=== PATIENT | female | born 1935 | race Caucasian/White ===

== ENCOUNTER → 2016-10-12 | Outpatient (CLI) | payer MEDICARE, MEDICAID ==
[~2016-10-12] MED LIST: ADVIL200 MG PO; ANTACID ULTRA1000 M1 PO; ASPIR-LOW81 MG PO; ASPIRIN 81M81 MG/TA2 PO; ASPIRIN E.C. 8181 MG PO; ATIVAN 0.50.5 MG/TAB PO; ATIVAN PO; ATORVASTATIN; ATROVENT I0.2 MG/1 M IH; BENADRYL25 M2 PO; CALCIUM + D 6001 TAB PO; CALCIUM 1200 W/1 SGL PO; CALCIUM 600600 MG PO; CARDI-OMEGA1000 MG PO; CLEOCIN HCL300 MG PO; COLACE 100100 MG/CAP PO; COLACE50 MG PO; DECADRON6 MG PO; DILAUDID 2MG TAB2 MG PO; DIPHENHYDRAMINE25 MG PO; EPA FISH OIL1000 MG PO; ESCITALOPRAM; FISH OIL SUPER1 SGL PO; FLAGYL500 MG PO; FLONASE NASAL S16 GM NS; FLUTICASON0.05 MG/Ac NS; GABAPENTIN100 M1 PO; GAS RELIEF 125125 MG PO; GAS RELIEF125 MG PO; GAS-X EXTRA ST125 MG PO; IBUPROFEN; IBUPROFEN200 MG PO; IPRATROPIUM BROM3 M1 IH; IRON325 M1 PO; LANSOPRAZOLE30 MG PO; LEVOTHYROXINE PO; LEVOXYL0.05 MG PO; LEVOXYL0.075 MG PO; LEXAPRO20 MG PO; MACROBID 1100 MG/CAP PO; MULTIPLE VITAMI1 CAP PO; NAMENDA XR 28MG PO; NEURONTIN100 MG/CAP PO; NEURONTIN300 MG/CAP PO; OCUVITE1 TA1 PO; OMEGA-3 FISH1200 MG PO; OXYCODONE5 M1 PO; PREDNISONE20 MG PO; PREVACID 30MG30 M1 PO; PRIL40; PRIL40 PO; REQUIP0.25 MG PO; RT ALBUTER2.5 MG/0.5 IH; SINGULAIR 110 MG/TAB PO; SINGULAIR PO; SYNTHROID0.05 MG/TA PO; VISTARIL 2525 MG/CAP PO; ZANTAC PO; ZOFRAN 4MG T4 MG/TAB PO; ZYRTEC 10MG10 MG PO; ZYRTEC ALLERGY10 MG PO; [UNRECOGNIZED DRUG - OTHER]; [UNRECOGNIZED DRUG - OTHER] TP
== END ==
LOC: MC.RAD 10-05 10:20
DX: Z12.31 Encounter for screening mammogram for malignant neoplasm of breast (principal)

== ENCOUNTER 2017-06-14 09:58 | Emergency (ER) | payer MEDICARE, MEDICAID ==
[~2017-06-14] VITALS: Ht 154.9 cm; Wt 90.9 kg
[2017-06-14 10:01] VITALS: TEMP 97.6
[2017-06-14 10:30] LABS: BASO % 0.5 % (0.0-2.0); EOS # 0.1 (0.0-0.7); EOS % 1.6 % (0-4.0); GRAN # 4.2 (1.4-6.5); GRAN % 77.3 % (42.2-75.2); HEMATOCRIT 36.5 % (37.0-47.0); LYMPH # 0.7 (1.2-3.4); LYMPH % 11.9 % (20.0-51.0); MEAN CELL VOLUME 90 fl (80.0-100.0); MEAN CORPUSCULAR HEMOGLOBIN 29 pg (27.0-31.0); MEAN CORPUSCULAR HGB CONC 33 g/dl (33.0-37.0); MEAN PLATELET VOLUME 11.6 fl (7.4-10.4); MONO # 0.5 (0.1-0.6); MONO % 8.2 % (1.7-9.3); PLATELET COUNT 169 K/mm3 (130-400); RED BLOOD COUNT 4.08 M/mm3 (4.10-5.30); REDCELL DISTRIBUTION WIDTH-CV 14.6 % (11.5-14.5)
[2017-06-14 10:50] LABS: ALANINE AMINOTRANSFERASE 30 U/L (9-52); ALBUMIN 3.4 gm/dL (3.5-5.0); ALKALINE PHOSPHATASE 98 U/L (50-136); ANION GAP 10 mmol/L (7-16); AST,SGOT 30 U/L (15-37); BILIRUBIN,TOTAL 0.3 mg/dL (0.0-1.0); BLOOD UREA NITROGEN 13 mg/dL (7-17); CALCIUM 8.2 mg/dL (8.4-10.2); CARBON DIOXIDE 26 mmol/L (22-30); CHLORIDE 108 mmol/L (98-107); CREATININE, serum 0.64 mg/dL (0.52-1.25); GLUCOSE 73 mg/dL (74-106); POTASSIUM 3.5 mmol/L (3.4-5.0); SODIUM 143 mmol/L (137-145); TOTAL PROTEIN 5.8 gm/dL (6.4-8.2)
[2017-06-14 11:02] LABS: TROPONIN-I < 0.012 ng/mL (0.000-0.034)
[2017-06-14] MEDS ORDERED: NORCO 325 MG-51 TAB PO (11:09)
[2017-06-14] MEDS ORDERED: LASIX 20MG TABL20 MG PO (11:15)
[2017-06-14 12:36] VITALS: BP 139/66; PULSE 66
== END 2017-06-14 12:59 | disposition home or self-care (01) ==
LOC: COL.ER 09:58
PROVIDERS: Family Medicine
DX: S20.212A Contusion of left front wall of thorax, initial encounter (principal); R40.2412 Glasgow coma scale score 13-15, at arrival to emergency department; G20 Parkinson's disease; Z79.51 Long term (current) use of inhaled steroids; Z79.82 Long term (current) use of aspirin; W18.39XA Other fall on same level, initial encounter; Y92.009 Unspecified place in unspecified non-institutional (private) residence as the place of occurrence of the external cause
CPT/HCPCS: A9284

== ENCOUNTER 2017-06-19 23:07 | Emergency (ER) | payer MEDICARE, MEDICAID ==
[~2017-06-19] VITALS: Ht 154.9 cm; Wt 94.5 kg
[~2017-06-19 23:07] MED LIST changes: +LASIX 20MG TABL20 MG PO; +NORCO 325 MG-51 TAB PO
[2017-06-19 23:09] VITALS: TEMP 99
[2017-06-19 23:55] LABS: BASO % 0.3 % (0.0-2.0); EOS # 0.1 (0.0-0.7); EOS % 0.9 % (0-4.0); GRAN # 4.9 (1.4-6.5); GRAN % 77.9 % (42.2-75.2); LYMPH # 0.8 (1.2-3.4); MEAN CELL VOLUME 90 fl (80.0-100.0); MEAN CORPUSCULAR HGB CONC 33 g/dl (33.0-37.0); MEAN PLATELET VOLUME 11.4 fl (7.4-10.4); MONO # 0.5 (0.1-0.6); MONO % 7.7 % (1.7-9.3); PLATELET COUNT 163 K/mm3 (130-400); RED BLOOD COUNT 3.92 M/mm3 (4.10-5.30); REDCELL DISTRIBUTION WIDTH-CV 14.6 % (11.5-14.5)
[2017-06-19 23:57] LABS: HEMATOCRIT 35.1 % (37.0-47.0); HEMOGLOBIN 11.5 g/dl (12.5-16.0); MEAN CORPUSCULAR HEMOGLOBIN 29 pg (27.0-31.0)
[2017-06-20 00:01] LABS: PROTHROMBIN TIME 11.1 SECONDS (9.7-12.8)
[2017-06-20 00:05] LABS: ALANINE AMINOTRANSFERASE 25 U/L (9-52); ALBUMIN 3.6 gm/dL (3.5-5.0); ALKALINE PHOSPHATASE 110 U/L (50-136); ANION GAP 10 mmol/L (7-16); AST,SGOT 16 U/L (15-37); BILIRUBIN,TOTAL 0.2 mg/dL (0.0-1.0); BLOOD UREA NITROGEN 14 mg/dL (7-17); CALCIUM 8.5 mg/dL (8.4-10.2); CARBON DIOXIDE 29 mmol/L (22-30); CHLORIDE 103 mmol/L (98-107); CREATININE, serum 0.68 mg/dL (0.52-1.25); GLUCOSE 123 mg/dL (74-106); POTASSIUM 3.8 mmol/L (3.4-5.0); SODIUM 142 mmol/L (137-145); TOTAL PROTEIN 5.9 gm/dL (6.4-8.2)
[2017-06-20 00:17] LABS: TROPONIN-I < 0.012 ng/mL (0.000-0.034)
[2017-06-20] MEDS ORDERED: ASPERCREME1 EACH TP (02:01)
[2017-06-20 02:17] VITALS: BP 124/67; PULSE 74
== END 2017-06-20 02:40 | disposition home or self-care (01) ==
LOC: COL.ER 23:07
PROVIDERS: Emergency Medicine
DX: R07.89 Other chest pain (principal); J44.9 Chronic obstructive pulmonary disease, unspecified; G20 Parkinson's disease; E03.9 Hypothyroidism, unspecified; Z79.82 Long term (current) use of aspirin; Z79.51 Long term (current) use of inhaled steroids; Z90.49 Acquired absence of other specified parts of digestive tract; Z90.89 Acquired absence of other organs; Z90.710 Acquired absence of both cervix and uterus; Z98.890 Other specified postprocedural states

== ENCOUNTER 2017-07-06 03:20 | Emergency (ER) | payer MEDICARE, MEDICAID ==
[~2017-07-06] VITALS: Ht 154.9 cm; Wt 88.6 kg
[~2017-07-06 03:20] MED LIST changes: +ASPERCREME1 EACH TP
[2017-07-06 03:24] VITALS: TEMP 97.4
[2017-07-06 03:51] LABS: BASO # 0.1 (0.0-0.2); EOS # 0.1 (0.0-0.7); EOS % 2.8 % (0-4.0); GRAN # 3.1 (1.4-6.5); GRAN % 62.1 % (42.2-75.2); HEMATOCRIT 39.1 % (37.0-47.0); HEMOGLOBIN 12.7 g/dl (12.5-16.0); LYMPH # 1.2 (1.2-3.4); MEAN CELL VOLUME 88 fl (80.0-100.0); MEAN CORPUSCULAR HEMOGLOBIN 29 pg (27.0-31.0); MEAN CORPUSCULAR HGB CONC 33 g/dl (33.0-37.0); MEAN PLATELET VOLUME 11.4 fl (7.4-10.4); MONO # 0.5 (0.1-0.6); MONO % 9.7 % (1.7-9.3); PLATELET COUNT 195 K/mm3 (130-400); RED BLOOD COUNT 4.43 M/mm3 (4.10-5.30); REDCELL DISTRIBUTION WIDTH-CV 14.3 % (11.5-14.5)
[2017-07-06 03:55] LABS: INR 1.1 (0.8-3.0)
[2017-07-06 03:59] LABS: ALBUMIN 3.4 gm/dL (3.5-5.0); BILIRUBIN,TOTAL 0.4 mg/dL (0.0-1.0); CALCIUM 8.5 mg/dL (8.4-10.2); CREATININE, serum 0.71 mg/dL (0.52-1.25); PARTIAL THROMBOPLASTIN TIME 33.4 SECONDS (26.0-37.0); POTASSIUM 3.9 mmol/L (3.4-5.0); TOTAL PROTEIN 5.9 gm/dL (6.4-8.2)
[2017-07-06 05:28] LABS: COLLECTION METHOD CATHETER
[2017-07-06 05:38] LABS: MUCOUS Present /lpf; PH 7 (5-8); SQUAMOUS EPITHELIAL 0-2 /hpf; URINE APPEARANCE Clear; URINE BACTERIA None Seen /hpf; URINE BILIRUBIN Negative (NEGATIVE); URINE BLOOD Negative (NEGATIVE); URINE COLOR Straw; URINE GLUCOSE Negative (NEGATIVE); URINE KETONE Negative (NEGATIVE); URINE LEUKOCYTE ESTERASE Negative (NEGATIVE); URINE NITRATE Negative (NEGATIVE); URINE PROTEIN(semi-quant) Negative (NEGATIVE); URINE RBC 0-2 /hpf; URINE UROBILINOGEN Negative (NEGATIVE)
[2017-07-06 06:50] VITALS: BP 194/83; PULSE 61
[2017-07-07] MEDS ORDERED: REQUIP 1MG T1 MG/TAB PO (12:40)
[2017-07-07] MEDS ORDERED: LASIX 20MG TABL20 MG PO (12:40)
== END 2017-07-06 06:51 | disposition home or self-care (01) ==
LOC: COL.ER 03:20
PROVIDERS: Emergency Medicine
DX: S09.90XA Unspecified injury of head, initial encounter (principal); S01.411A Laceration without foreign body of right cheek and temporomandibular area, initial encounter; G20 Parkinson's disease; J44.9 Chronic obstructive pulmonary disease, unspecified; E03.9 Hypothyroidism, unspecified; Z79.51 Long term (current) use of inhaled steroids; Z79.82 Long term (current) use of aspirin; Z23 Encounter for immunization; W08.XXXA Fall from other furniture, initial encounter; Y92.009 Unspecified place in unspecified non-institutional (private) residence as the place of occurrence of the external cause

== ENCOUNTER 2017-07-07 09:34 | Inpatient (IN) | payer MEDICARE, MEDICAID ==
[~2017-07-07] VITALS: Ht 154.9 cm; Wt 90.9 kg
[2017-07-07] MEDS ORDERED: REQUIP 1MG T1 MG/TAB PO (12:40)
[2017-07-07] MEDS ORDERED: LASIX 20MG TABL20 MG PO (12:40)
[2017-07-07 16:11] VITALS: BP 163/90; PULSE 71; TEMP 98.6
[2017-07-07 18:50] VITALS: BP 182/113; PULSE 85
[2017-07-07 21:27] VITALS: BP 162/94; PULSE 79; TEMP 98.6
[2017-07-07 23:39] VITALS: BP 136/91; PULSE 72; TEMP 98.8
[2017-07-08] VITALS (7 sets, daily range): BP systolic 133–154; BP diastolic 51–78; PULSE 66–82; TEMP 98.1–98.9
[2017-07-08 08:34] LABS: BASO % 0.2 % (0.0-2.0); GRAN # 3.7 (1.4-6.5); GRAN % 77.2 % (42.2-75.2); HEMOGLOBIN 12.1 g/dl (12.5-16.0); LYMPH # 0.6 (1.2-3.4); LYMPH % 13.2 % (20.0-51.0); MEAN CELL VOLUME 86 fl (80.0-100.0); MEAN CORPUSCULAR HEMOGLOBIN 29 pg (27.0-31.0); MEAN CORPUSCULAR HGB CONC 33 g/dl (33.0-37.0); MEAN PLATELET VOLUME 11.8 fl (7.4-10.4); MONO # 0.4 (0.1-0.6); PLATELET COUNT 177 K/mm3 (130-400); RED BLOOD COUNT 4.22 M/mm3 (4.10-5.30); REDCELL DISTRIBUTION WIDTH-CV 14.1 % (11.5-14.5)
[2017-07-08 08:35] LABS: HEMATOCRIT 36.4 % (37.0-47.0)
[2017-07-08 08:47] LABS: CALCIUM 8.4 mg/dL (8.4-10.2); CREATININE, serum 0.59 mg/dL (0.52-1.25); POTASSIUM 3.6 mmol/L (3.4-5.0)
[2017-07-09 04:00] VITALS: BP 145/60; PULSE 88; TEMP 98.5
[2017-07-09 06:28] LABS: BASO % 0.2 % (0.0-2.0); GRAN # 4.1 (1.4-6.5); GRAN % 81.8 % (42.2-75.2); LYMPH # 0.5 (1.2-3.4); MEAN CELL VOLUME 89 fl (80.0-100.0); MEAN CORPUSCULAR HGB CONC 33 g/dl (33.0-37.0); MEAN PLATELET VOLUME 11.9 fl (7.4-10.4); MONO # 0.4 (0.1-0.6); MONO % 8.8 % (1.7-9.3); PLATELET COUNT 176 K/mm3 (130-400); RED BLOOD COUNT 4.08 M/mm3 (4.10-5.30); REDCELL DISTRIBUTION WIDTH-CV 14.3 % (11.5-14.5)
[2017-07-09 06:31] LABS: HEMATOCRIT 36.1 % (37.0-47.0); HEMOGLOBIN 11.8 g/dl (12.5-16.0); MEAN CORPUSCULAR HEMOGLOBIN 29 pg (27.0-31.0)
[2017-07-09 06:43] LABS: CALCIUM 8.5 mg/dL (8.4-10.2); CREATININE, serum 0.67 mg/dL (0.52-1.25); POTASSIUM 3.8 mmol/L (3.4-5.0)
[2017-07-09 07:57] VITALS: BP 136/46; PULSE 69; TEMP 98.9
[2017-07-09 11:18] VITALS: BP 138/54; PULSE 72
[2017-07-09 11:22] VITALS: BP 142/76; PULSE 78; TEMP 98.7
[2017-07-09 11:23] VITALS: BP 142/72; PULSE 77; TEMP 98.7
[2017-07-09] MEDS ORDERED: ATIVAN 0.50.5 MG/TAB PO (12:39)
[2017-07-09] MEDS ORDERED: VOLTAREN GEL 1%1 TU TP (12:39)
[2017-07-09] MEDS ORDERED: MEDROL 4MG DOSPA4 MG PO (12:49)
== END 2017-07-09 15:23 | DRG 57 ==
LOC: COL.ER 09:34 → MEDICAL 12:04
PROVIDERS: Physician Assistant
DX: G20 Parkinson's disease (principal); J44.1 Chronic obstructive pulmonary disease with (acute) exacerbation; G62.9 Polyneuropathy, unspecified; W18.30XA Fall on same level, unspecified, initial encounter; R07.89 Other chest pain; F02.80 Dementia in other diseases classified elsewhere, unspecified severity, without behavioral disturbance, psychotic disturbance, mood disturbance, and anxiety; M79.7 Fibromyalgia; Z91.81 History of falling; Z87.891 Personal history of nicotine dependence; Z23 Encounter for immunization
CPT/HCPCS: 99222-AI; 99231-AI; 99239; G0378; G8987-GO; G8988-GO; J1644; J2270; J2920

== ENCOUNTER → 2018-02-18 | Outpatient (CLI) | payer MEDICARE, MEDICAID ==
[~2018-02-18] MED LIST changes: +MEDROL 4MG DOSPA4 MG PO; +REQUIP 1MG T1 MG/TAB PO; +VOLTAREN GEL 1%1 TU TP
== END ==
LOC: MC.RAD 01-13 10:20
DX: Z12.31 Encounter for screening mammogram for malignant neoplasm of breast (principal)

== ENCOUNTER → 2018-08-28 | Outpatient (CLI) | payer MEDICARE, MEDICAID | LOC: COL.VAS 14:47 | DX: I74.9 Embolism and thrombosis of unspecified artery (principal); M79.604 Pain in right leg; M79.605 Pain in left leg ==

== ENCOUNTER → 2018-09-18 | Outpatient (CLI) | payer MEDICARE, MEDICAID | LOC: COL.VAS 14:00 | DX: M79.604 Pain in right leg (principal); M79.605 Pain in left leg ==

== ENCOUNTER 2018-10-31 08:14 | Emergency (ER) | payer MEDICARE, MEDICAID ==
[~2018-10-31] VITALS: Ht 149.9 cm; Wt 83.6 kg
[2018-10-31 09:00] LABS: COLLECTION METHOD CLEAN CATCH
[2018-10-31 09:06] LABS: PH 7 (5-8); SQUAMOUS EPITHELIAL 0-2 /hpf; URINE APPEARANCE Clear; URINE BACTERIA None Seen /hpf; URINE BILIRUBIN Negative (NEGATIVE); URINE BLOOD Negative (NEGATIVE); URINE COLOR Straw; URINE GLUCOSE Negative (NEGATIVE); URINE KETONE Negative (NEGATIVE); URINE LEUKOCYTE ESTERASE Negative (NEGATIVE); URINE NITRATE Negative (NEGATIVE); URINE PROTEIN(semi-quant) Negative (NEGATIVE); URINE RBC 0-2 /hpf; URINE UROBILINOGEN Negative (NEGATIVE)
[2018-10-31] MEDS ORDERED: LIDODERM 5% PATC1 EA TP (10:44)
[2018-10-31 11:15] VITALS: BP 172/77; PULSE 61; TEMP 97.2
== END 2018-10-31 11:15 | disposition home or self-care (01) ==
LOC: COL.ER 08:14
PROVIDERS: Physician Assistant
DX: S09.90XA Unspecified injury of head, initial encounter (principal); S16.1XXA Strain of muscle, fascia and tendon at neck level, initial encounter; G20 Parkinson's disease; J44.9 Chronic obstructive pulmonary disease, unspecified; I10 Essential (primary) hypertension; E03.9 Hypothyroidism, unspecified; Z79.82 Long term (current) use of aspirin; Z87.891 Personal history of nicotine dependence; Z79.51 Long term (current) use of inhaled steroids; W19.XXXA Unspecified fall, initial encounter; Y92.009 Unspecified place in unspecified non-institutional (private) residence as the place of occurrence of the external cause
CPT/HCPCS: J1885

== ENCOUNTER → 2018-12-19 | Outpatient (CLI) | payer MEDICARE, MEDICAID ==
[~2018-12-19] MED LIST changes: +LIDODERM 5% PATC1 EA TP
[2018-12-19 17:04] LABS: CREATININE, serum 0.57 (0.52-1.25)
== END ==
LOC: COL.LAB 16:29
PROVIDERS: Psychiatry & Neurology Neurology
DX: G20 Parkinson's disease (principal); F02.80 Dementia in other diseases classified elsewhere, unspecified severity, without behavioral disturbance, psychotic disturbance, mood disturbance, and anxiety; M62.81 Muscle weakness (generalized); I10 Essential (primary) hypertension; E03.9 Hypothyroidism, unspecified; J44.9 Chronic obstructive pulmonary disease, unspecified; F41.9 Anxiety disorder, unspecified; K21.9 Gastro-esophageal reflux disease without esophagitis; M79.7 Fibromyalgia; R22.9 Localized swelling, mass and lump, unspecified; J30.9 Allergic rhinitis, unspecified

== ENCOUNTER 2019-05-15 15:00 | Inpatient (IN) | payer MEDICARE, MEDICAID ==
[~2019-05-15] VITALS: Ht 152.4 cm; Wt 85.9 kg
[2019-05-15 16:07] LABS: PROTHROMBIN TIME 11.4 SECONDS (9.7-12.8)
[2019-05-15 16:10] LABS: PARTIAL THROMBOPLASTIN TIME 31.7 SECONDS (26.0-37.0)
[2019-05-15 16:11] LABS: BASO % 0.6 % (0.0-2.0); EOS # 0.1 (0.0-0.7); EOS % 1.6 % (0-4.0); GRAN # 3.6 (1.4-6.5); GRAN % 71.9 % (42.2-75.2); HEMATOCRIT 37.1 % (37.0-47.0); LYMPH # 0.9 (1.2-3.4); LYMPH % 17.1 % (20.0-51.0); MEAN CELL VOLUME 91 fl (80.0-100.0); MEAN CORPUSCULAR HEMOGLOBIN 29 pg (27.0-31.0); MEAN CORPUSCULAR HGB CONC 32 g/dl (33.0-37.0); MONO # 0.4 (0.1-0.6); MONO % 8.4 % (1.7-9.3); PLATELET COUNT 157 K/mm3 (130-400); RED BLOOD COUNT 4.08 M/mm3 (4.10-5.30); REDCELL DISTRIBUTION WIDTH-CV 14.4 % (11.5-14.5)
[2019-05-15 16:15] LABS: ALANINE AMINOTRANSFERASE 32 U/L (9-52); ALBUMIN 3.4 gm/dL (3.5-5.0); ALKALINE PHOSPHATASE 95 U/L (50-136); ANION GAP 7 mmol/L (7-16); AST,SGOT 44 U/L (15-37); BILIRUBIN,TOTAL 0.4 mg/dL (0.0-1.0); BLOOD UREA NITROGEN 16 mg/dL (7-17); CALCIUM 8.3 mg/dL (8.4-10.2); CARBON DIOXIDE 28 mmol/L (22-30); CHLORIDE 107 mmol/L (98-107); CREATININE, serum 0.73 (0.52-1.25); GLUCOSE 91 mg/dL (74-106); POTASSIUM 3.8 mmol/L (3.4-5.0); SODIUM 142 mmol/L (137-145); TOTAL PROTEIN 5.7 gm/dL (6.4-8.2)
[2019-05-15 16:27] LABS: TROPONIN-I < 0.012 ng/mL (0.000-0.035)
[2019-05-15] MEDS ORDERED: VENTOLIN0.09 MG IH (17:32)
[2019-05-15] MEDS ORDERED: LUTEIN20 M1 PO (17:34)
[2019-05-15] MEDS ORDERED: PEPCID 20MG TAB20 MG PO (17:38)
--- NOTE | 2019-05-15 19:20 | NUR ---
Report received from day shift nurse. Reported patient arrived to medical from ER at shift change.
[2019-05-15 21:03] VITALS: BP 142/54; PULSE 58; TEMP 97.8
--- NOTE | 2019-05-15 21:15 | NUR ---
Received paperwork from [facility], and completed med rec based off paperwork, as patient was not sure what medications she takes and when. Patient has a baseline of dementia. Alert and oriented x 4 at this time. Denies having pain and discomfort. IV to site to left AC. Site is without redness, warmth, swelling, and pain. Fluids running per orders. Denies SOB and dyspnea. LS CTA. Respirations even and unlabored. HRR. On telemetry-normal sinus. Capillary refill less than 3 seconds. Non-tenting skin turgor. BSAx4. Abdomen soft and non-tender. 1+ edema BLE. Denies having any questions, needs, or concerns at this time. High fall risk precautions in place due to baseline dementia. Resting in bed with call light within reach.
[2019-05-15] MEDS ORDERED: ANTACID500 M1 PO (21:47)
[2019-05-15] MEDS ORDERED: [UNRECOGNIZED DRUG - OTHER] PO (21:49)
[2019-05-15] MEDS ORDERED: REQUIP 1MG T1 MG/TAB PO (21:53)
[2019-05-15] MEDS ORDERED: VICTORS1 LO2 TOP (21:55)
[2019-05-15] MEDS ORDERED: SYSTANE 0.4%-0.1 SOL OP (21:56)
[2019-05-15] MEDS ORDERED: PEPTO BISM262 MG/15 PO (21:58)
[2019-05-15] MEDS ORDERED: BICARSIM FORTE1 TA1 PO (21:59)
[2019-05-15] MEDS ORDERED: NEURONTIN300 MG/CAP PO (22:01)
[2019-05-15] MEDS ORDERED: MOTRIN 200200 MG/TAB PO (22:02)
[2019-05-15] MEDS ORDERED: ANORO IH (22:03)
[2019-05-15] MEDS ORDERED: MUCINEX 60600 MG/TA1 PO (22:06)
[2019-05-15] MEDS ORDERED: ANTI-DIARRHEAL2 MG PO (22:09)
[2019-05-15 23:11] VITALS: BP 142/61; PULSE 56; TEMP 98.4
--- NOTE | 2019-05-16 00:01 | NUR ---
HepXa 0.49. Decrease rate of heparin drip from 10 ml/hr to 9 ml/hr per protocol. Recheck at 0600.
[2019-05-16 04:53] VITALS: BP 148/66; BP 172/60; PULSE 61; TEMP 97.8
--- NOTE | 2019-05-16 06:00 | NUR ---
Patient denies having pain and discomfort. Stated that she was able to sleep well during the night except when staff kept waking her up. Voices no questions, needs, or concerns at this time. Resting in bed with call light within reach.
[2019-05-16 07:19] VITALS: BP 150/56; PULSE 53; TEMP 97.7
--- NOTE | 2019-05-16 09:29 | NUR ---
Pt assessment completed and charted. Morning medications administered per JUN. Pt sitting in bed, A&O. Denies chest pain at this time. Denies N/V/D, SOB, palpitations, abdominal pain. Pt has LAC IV w/ NS running, no complications. Hep gtt running, rate decreased to 8ml/hr per protocol post Hep XA draw this morning. Pt only c/o RLS and some tenderness to legs when touched. Call light within reach, no other concerns expressed.
[2019-05-16 12:11] VITALS: BP 172/72; PULSE 55; TEMP 98.4
--- NOTE | 2019-05-16 13:20 | NUR ---
Plan: To return home to [facility]. Patient listed her daughter Elvie as care support phone number is [phone]. Patient also listed Elvie as her EMR and DPOA. Assess: SW met with patient at her bedside. Patient reported that she is currently waiting to take a stress test tomorrow, and she is hoping to return home. Patient indicated that she utilizes a wheel chair and a shower chair, and her PCP is Dr. Kumar with her having an appt last Saturday. Patient reported that she gets her medications from [facility] pharmacy with no complications. Patient declined HHS at this time. Action: Patient was educated about community resources at this time. Sm may need transportation home. Sw did try to contact Patient's daughter with no answer.
--- NOTE | 2019-05-16 14:11 | NUR ---
Pt doing well, on hep gtt at 8ml hr. no change in current rate after noon labs. Pt denies pain. no concerns at this time.
[2019-05-16 15:50] VITALS: BP 158/63; PULSE 62; TEMP 98.3
--- NOTE | 2019-05-16 18:50 | NUR ---
Report received from day shift nurse. HepXa 0.27-goal, no change in rate. Recheck HepXa in the morning.
--- NOTE | 2019-05-16 19:16 | NUR ---
Pt had uneventful day. Hep gtt running at 8ml/hr, two consec lab draws were WNL, new Hep Xa to be drawn in AM. No other concerns noted. Report given to DARREN Wynne.
--- NOTE | 2019-05-16 19:50 | NUR ---
Patient assessed at this time. Alert and oriented x 4, and able to make needs known. Denies having pain and discomfort at this time. Peripheral IV to left AC. NS running at 100 ml/hr, and Heparin drip running at 8 ml/hr per orders. Site is without redness, warmth, swelling, and pain. Denies SOB and dyspnea. LS CTA. Respirations even and unlabored. Denies chest pain and discomfort. HRR. Telemetry in place: sinus. Capillaryr refill less than 3 seconds. Non-tenting skin turgor. BSAx4. Abdomen soft and non-tender. 1+ edema BLE. Voices no questions, needs, or concerns at this time. Resting in bed with call light within reach.
[2019-05-16 20:44] VITALS: BP 104/46; BP 140/64; PULSE 64; TEMP 98.1
--- NOTE | 2019-05-16 22:51 | NUR ---
Patient complaining of headache. States that she takes PRN Ibuprofen at home. Spoke with MARCELA Davila. New order for one time dose of Motrin. Given per orders. Also gave patient warm blanket as requested. Voices no further questions, needs, or concerns at this time. Resting in bed with call light within reach. High fall risk precautions in place.
[2019-05-16 23:53] VITALS: BP 138/56; PULSE 59; TEMP 98.3
[2019-05-17 03:57] VITALS: BP 134/58; PULSE 64; TEMP 98.3
--- NOTE | 2019-05-17 05:08 | NUR ---
Patient had called around 0230, and stated that she was having difficulty breathing. Oxygen 97% RA. Respirations 20, even and unlabored. Called RT to give nebulizer treatment. Patient with occasional moist cough. Stated that she was feeling more congested. Notified HAND ASSEMBLER and requested PRN Mucinex per patient's request. Patient pulled out IV to left AC around 0315. New IV access in left forearm. Wrapped with coban for protection. Continues on Heparin drip at 8 ml/hr, and on NS at 100 ml/hr. Voices no further questions, needs, or concerns at this time. Resting in bed with call light within reach.
--- NOTE | 2019-05-17 07:01 | NUR ---
Report given to day shift nurse.
--- NOTE | 2019-05-17 07:33 | NUR ---
IN TOO BOOST PATIENT UP IN BED. MOVED PATIENT TO THE CHAIR. PATIENT WAS A LITTLE TEARFUL SAYING, SHE MISSED HER JADE AND THEY ARE SOME PEOPLE THAT ARE NOT NICE TO HER. PATIENT DENIES ANY NAUSEA, VOMITING, SHORTNESS OF BREATH, OR DIZZINESS THIS MORNING. PATIENT IS ALERT AND ORIENTATED X4 THIS MORNING. PULSES ARE EQUAL AND BILATERALLY. NO COMPLAINTS AT THIS TIME MEDICALLY. PAIN IN HER BACK SO WILL CHECK TO SEE WHAT I CAN GET HER. CALL LIGHT IN REACH AND FRESH WATER GIVEN TO PATIENT WITH THE TV TURNED ON.
[2019-05-17 07:58] VITALS: BP 114/51; PULSE 57; TEMP 98.4
[2019-05-17 08:20] LABS: BASO % 0.7 % (0.0-2.0); EOS % 0.7 % (0-4.0); GRAN # 3.1 (1.4-6.5); HEMOGLOBIN 10.7 g/dl (12.5-16.0); LYMPH # 0.6 (1.2-3.4); LYMPH % 15.2 % (20.0-51.0); MEAN CELL VOLUME 91 fl (80.0-100.0); MEAN CORPUSCULAR HEMOGLOBIN 30 pg (27.0-31.0); MEAN CORPUSCULAR HGB CONC 32 g/dl (33.0-37.0); MEAN PLATELET VOLUME 12.1 fl (7.4-10.4); MONO # 0.3 (0.1-0.6); MONO % 7.2 % (1.7-9.3); PLATELET COUNT 123 K/mm3 (130-400); RED BLOOD COUNT 3.62 M/mm3 (4.10-5.30); REDCELL DISTRIBUTION WIDTH-CV 14.6 % (11.5-14.5)
[2019-05-17 08:40] LABS: CALCIUM 7.8 mg/dL (8.4-10.2); CHOLESTEROL RISK RATIO 3.1; CREATININE, serum 0.57 (0.52-1.25); POTASSIUM 3.4 mmol/L (3.4-5.0)
--- NOTE | 2019-05-17 09:38 | NUR ---
PATIENTS PAIN IS MUCH BETTER AFTER TAKING HER MORNING MEDICATIONS. SHE IS SITTING IN THE CHAIR RELAXING.
[2019-05-17 11:17] VITALS: BP 124/61; PULSE 56; TEMP 98
[2019-05-17 16:20] VITALS: BP 142/59; PULSE 53; TEMP 98
--- NOTE | 2019-05-17 17:04 | NUR ---
PATIENT JUST GOT BACK TO BED FROM USING THE BEDSIDE COMMODE.PATIENT VOIDED. HEPARIN INFUSION STOPPED BECAUSE OF D/C ORDER. NO COMPLAINTS AT THIS TIME.
--- NOTE | 2019-05-17 18:24 | NUR ---
PATIENT IS WALKING IN THE HALLWAY WITH THE DIRECTOR HOME ON DUTY AT THIS TIME. NO ACUTE S/S OF DYSTRESS. PATIENT HAD A SHOWER TODAY AND IS VERY HAPPY ABOUT IT. NO NEEDS AT THIS TIME.
--- NOTE | 2019-05-17 19:30 | NUR ---
PATIENT UP IN ROOM, REMINDED BY STAFF NURSE TO BE UP ONLY WITH ASSISTANCE FOR PATIENT SAFETY. PATIENT STATED SHE HAD TO VOID IN BATHROOM. PATIENT PUT BACK IN BED, BED ALARM ON.
[2019-05-17 19:57] VITALS: BP 159/65; PULSE 58; TEMP 98.3
[2019-05-17 23:11] VITALS: BP 143/51; PULSE 59; TEMP 98.4
[2019-05-18] VITALS (9 sets, daily range): BP systolic 112–148; BP diastolic 49–77; PULSE 54–86; TEMP 98.5–98.8
--- NOTE | 2019-05-18 01:30 | NUR ---
PATIENT OUT OF BED, BED ALARM GOING OFF, REPORTS SHE IS GOING TO THE BATHROOM& THAT SHE DID NOT REMEMBER WHERE SHE WAS AT, COOPERATIVE AND AFTER VOIDING IN BATHROOM, PUT BACK TO BED. BED ALARM ON.
--- NOTE | 2019-05-18 02:54 | NUR ---
PATIENT RESTING IN BED WITH EYES CLOSED, DOES NOT AWAKEN WHEN ROOM ENTERED. BED ALARM ON.
--- NOTE | 2019-05-18 05:20 | NUR ---
PER STAFF AID REPORTING AND THIS RN OBSERVED PATIENT WHEN AWAKE FROM SLEEP WOULD NOT REMEMBER BOTH TIMES AGAIN WHERE SHE WAS AT, WHY SHE IS NOT BEING TOLD "ANYTHING" AND REVIEWING WITH PATIENT PLANNED TESTING FOR MRI/EEG/LEXISCAN THIS MORNING ON DAY SHIFT. BED ALARM ON.
[2019-05-18 06:22] LABS: BASO % 0.3 % (0.0-2.0); EOS # 0.1 (0.0-0.7); EOS % 2.3 % (0-4.0); GRAN # 2.2 (1.4-6.5); GRAN % 65.3 % (42.2-75.2); HEMOGLOBIN 11.3 g/dl (12.5-16.0); LYMPH # 0.7 (1.2-3.4); LYMPH % 20.4 % (20.0-51.0); MEAN CELL VOLUME 90 fl (80.0-100.0); MEAN CORPUSCULAR HEMOGLOBIN 30 pg (27.0-31.0); MEAN CORPUSCULAR HGB CONC 33 g/dl (33.0-37.0); MEAN PLATELET VOLUME 12.3 fl (7.4-10.4); MONO # 0.4 (0.1-0.6); MONO % 11.4 % (1.7-9.3); PLATELET COUNT 125 K/mm3 (130-400); RED BLOOD COUNT 3.81 M/mm3 (4.10-5.30); REDCELL DISTRIBUTION WIDTH-CV 14.4 % (11.5-14.5)
[2019-05-18 06:42] LABS: HEMATOCRIT 34.3 % (37.0-47.0)
--- NOTE | 2019-05-18 07:26 | NUR ---
PATIENT RESTING IN BED, AWAKE DURING SHIFT CHANGE REPORT GIVEN TO DAY SHIFT NURSE. BED ALARM ON.
[2019-05-18] MEDS ORDERED: ASPIRIN 81M81 MG/TA2 PO (08:05)
[2019-05-18] MEDS ORDERED: IMDUR 30MG30 MG/TAB PO (08:05)
[2019-05-18] MEDS ORDERED: CRESTOR20 MG PO (08:07)
--- NOTE | 2019-05-18 09:15 | NUR ---
Pt down for lexiscan at this time.
--- NOTE | 2019-05-18 11:30 | NUR ---
Pt back from lexiscan. Assessment complete, morning medications administered. Pt had new 22g RFA INT IV placed for lexiscan. [facility] called to inform prior to injection that LAC IV site had gone bad. This nurse assessed site, IV catheter was coming out, site is red and a little swollen. IV removed, new site obtained. Pt is A&O, 1 assist in room. Pt on room air, denies chest pain, dizziness, SOB, N/V/D. VSS. Pt voices no other concerns at this time. Hospitalist in for rounds, POC discussed, awaiting lexiscan results.
--- NOTE | 2019-05-18 15:05 | NUR ---
Pt complaining of headache earlier, MARLA Onofre called for order. Motrin PRN administered. Pt states headache improved slightly after eating, headache possibly d/t being NPO.
--- NOTE | 2019-05-18 15:18 | NUR ---
Truck Trailer Final Inspector was notified that discharge orders were put in for patient. MYLES contacted Cailin (ph#[phone]) at [facility] and faxed discharge orders to [phone]. MYLES met with patient and patient's daughter, Elvie (ph#[phone]) to provide update. Elvie to provide transportation upon discharge. MYLES presented and explained IM form to patient who verbalized understanding and provided signature. Patient and Elvie declined copy from MYLES. MYLES placed form in chart. No additional needs identified at this time.
--- NOTE | 2019-05-18 17:20 | NUR ---
Pt discharge instructions discussed and reviewed w/ pt and daughter who verbalize understanding. All questions answered. Pt RFA INT IV dc'd w/ catheter tip intact and no other complications. Pt escorted out via WC by ESTEVAN Pagan
== END 2019-05-18 17:21 | disposition home or self-care (01) | DRG 313 ==
LOC: COL.ER 15:00 → MEDICAL 16:49
PROVIDERS: Emergency Medicine; ADMIT Hospitalist
DX: R07.89 Other chest pain (principal); K21.9 Gastro-esophageal reflux disease without esophagitis; F41.9 Anxiety disorder, unspecified; M79.7 Fibromyalgia; G31.83 Neurocognitive disorder with Lewy bodies; F02.80 Dementia in other diseases classified elsewhere, unspecified severity, without behavioral disturbance, psychotic disturbance, mood disturbance, and anxiety; J44.9 Chronic obstructive pulmonary disease, unspecified; I25.10 Atherosclerotic heart disease of native coronary artery without angina pectoris; I34.0 Nonrheumatic mitral (valve) insufficiency; I51.89 Other ill-defined heart diseases; E03.9 Hypothyroidism, unspecified; Z90.710 Acquired absence of both cervix and uterus; Z79.82 Long term (current) use of aspirin
CPT/HCPCS: OP; 99231-AI; 99239; A9500; G0378; J0360; J1644; J1650; J2785; J7030

== ENCOUNTER 2020-06-16 14:08 | Emergency (ER) | payer MEDICARE, MEDICAID ==
[~2020-06-16] VITALS: Ht 152.4 cm; Wt 81.8 kg
[~2020-06-16 14:08] MED LIST changes: +ANORO IH; +ANTACID500 M1 PO; +ANTI-DIARRHEAL2 MG PO; +BICARSIM FORTE1 TA1 PO; +CRESTOR20 MG PO; +IMDUR 30MG30 MG/TAB PO; +LUTEIN20 M1 PO; +MOTRIN 200200 MG/TAB PO; +MUCINEX 60600 MG/TA1 PO; +PEPCID 20MG TAB20 MG PO; +PEPTO BISM262 MG/15 PO; +SYSTANE 0.4%-0.1 SOL OP; +VENTOLIN0.09 MG IH; +VICTORS1 LO2 TOP; +[UNRECOGNIZED DRUG - OTHER] PO
[2020-06-16 14:15] VITALS: TEMP 97.8
[2020-06-16 14:46] LABS: BASO % 0.4 % (0.0-2.0); EOS # 0.1 (0.0-0.7); EOS % 1.1 % (0-4.0); GRAN # 4.2 (1.4-6.5); GRAN % 76.7 % (42.2-75.2); HEMATOCRIT 37.9 % (37.0-47.0); HEMOGLOBIN 12.7 g/dl (12.5-16.0); LYMPH # 0.7 (1.2-3.4); LYMPH % 12.5 % (20.0-51.0); MEAN CELL VOLUME 88 fl (80.0-100.0); MEAN CORPUSCULAR HEMOGLOBIN 30 pg (27.0-31.0); MEAN CORPUSCULAR HGB CONC 34 g/dl (33.0-37.0); MEAN PLATELET VOLUME 11.7 fl (7.4-10.4); MONO # 0.5 (0.1-0.6); MONO % 8.9 % (1.7-9.3); PLATELET COUNT 155 K/mm3 (130-400); RED BLOOD COUNT 4.29 M/mm3 (4.10-5.30); REDCELL DISTRIBUTION WIDTH-CV 14.6 % (11.5-14.5)
[2020-06-16 14:54] LABS: ALANINE AMINOTRANSFERASE 14 U/L (4-34); ALBUMIN 3.6 gm/dL (3.5-5.0); ALKALINE PHOSPHATASE 100 U/L (50-136); ANION GAP 7 mmol/L (7-16); AST,SGOT 23 U/L (15-37); BILIRUBIN,TOTAL 0.4 mg/dL (0.0-1.0); BLOOD UREA NITROGEN 15 mg/dL (7-17); C-REACTIVE PROTEIN 1.3 mg/dL (0.0-0.9); CALCIUM 8.8 mg/dL (8.4-10.2); CARBON DIOXIDE 23 mmol/L (22-30); CHLORIDE 108 mmol/L (98-107); CREATININE, serum 0.83 (0.52-1.25); GLUCOSE 110 mg/dL (74-106); SODIUM 138 mmol/L (137-145)
[2020-06-16 15:03] LABS: TROPONIN-I < 0.012 ng/mL (0.000-0.035)
[2020-06-16 15:35] LABS: COLLECTION METHOD CLEAN CATCH
[2020-06-16 15:50] LABS: BUDDING YEAST Present /hpf; MUCOUS Present /lpf; PH 5 (5-8); URINE APPEARANCE Cloudy; URINE BACTERIA Rare /hpf; URINE BILIRUBIN Negative (NEGATIVE); URINE BLOOD Negative (NEGATIVE); URINE COLOR Amber; URINE GLUCOSE Negative (NEGATIVE); URINE KETONE Negative (NEGATIVE); URINE LEUKOCYTE ESTERASE 1+ (NEGATIVE); URINE NITRATE Negative (NEGATIVE); URINE PROTEIN(semi-quant) 1+ (NEGATIVE); URINE RBC 20-50 /hpf; URINE UROBILINOGEN Negative (NEGATIVE)
[2020-06-16] MEDS ORDERED: OMNICEF 300MG300 MG PO (15:59)
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
[2020-06-16 17:05] VITALS: BP 143/65; PULSE 82
--- NOTE | 2020-06-17 13:53 | NUR ---
Pulmonary Care Nurse contacted [facility] (intake #[id number]) in regards to patient's concerns reported yesterday.
== END 2020-06-16 17:09 | disposition home or self-care (01) ==
LOC: COL.ER 14:08
PROVIDERS: Nurse Practitioner Primary Care
DX: R41.82 Altered mental status, unspecified (principal); G20 Parkinson's disease; F41.9 Anxiety disorder, unspecified; E03.9 Hypothyroidism, unspecified; E78.5 Hyperlipidemia, unspecified; I10 Essential (primary) hypertension; J44.9 Chronic obstructive pulmonary disease, unspecified; K21.9 Gastro-esophageal reflux disease without esophagitis; F03.90 Unspecified dementia, unspecified severity, without behavioral disturbance, psychotic disturbance, mood disturbance, and anxiety; M79.7 Fibromyalgia; Z88.6 Allergy status to analgesic agent; Z88.0 Allergy status to penicillin; Z88.2 Allergy status to sulfonamides; Z88.8 Allergy status to other drugs, medicaments and biological substances; Z79.82 Long term (current) use of aspirin; Z79.890 Hormone replacement therapy; Z20.822 Contact with and (suspected) exposure to COVID-19
CPT/HCPCS: J0696; J7030

== ENCOUNTER 2021-08-10 11:47 | Observation (INO) | payer MEDICARE, MEDICAID ==
[2021-08-10] VITALS (12 sets, daily range): BP systolic 103–167; BP diastolic 65–95; PULSE 58–79; TEMP 97.5–98.4
[~2021-08-10] VITALS: Ht 162.6 cm; Wt 81.4 kg
[~2021-08-10 11:47] MED LIST changes: +OMNICEF 300MG300 MG PO
[2021-08-10 12:00] LABS: BASO % 0.5 % (0.0-2.0); EOS # 0.1 K/mm3 (0.0-0.7); EOS % 1.1 % (0.0-4.0); GRAN # 4.5 K/mm3 (1.4-6.5); GRAN % 69.1 % (42.2-75.2); HEMATOCRIT 41.9 % (37.0-47.0); HEMOGLOBIN 14.2 g/dl (12.5-16.0); LYMPH # 1.1 K/mm3 (1.2-3.4); LYMPH % 17.7 % (20.0-51.0); MEAN CELL VOLUME 91 fl (80.0-100.0); MEAN CORPUSCULAR HEMOGLOBIN 31 pg (27-31); MEAN CORPUSCULAR HGB CONC 34 g/dl (33.0-37.0); MEAN PLATELET VOLUME 10.8 fl (7.4-10.4); MONO # 0.7 K/mm3 (0.1-0.6); PLATELET COUNT 167 K/mm3 (130-400); RED BLOOD COUNT 4.63 M/mm3 (4.10-5.30); REDCELL DISTRIBUTION WIDTH-CV 13.8 % (11.5-14.5)
[2021-08-10 12:19] LABS: ALANINE AMINOTRANSFERASE 18 U/L (0-55); ALBUMIN 3.7 gm/dL (3.4-4.8); ALKALINE PHOSPHATASE 89 U/L (40-150); ANION GAP 9 mmol/L (7-16); AST,SGOT 16 U/L (5-34); BILIRUBIN,TOTAL 0.5 mg/dL (0.2-1.2); BLOOD UREA NITROGEN 18 mg/dL (10-20); CALCIUM 8.2 mg/dL (8.4-10.2); CARBON DIOXIDE 23 mmol/L (23-31); CHLORIDE 103 mmol/L (98-107); CREATININE, serum 0.98 mg/dL (0.57-1.11); GLUCOSE 87 mg/dL (70-99); PROTHROMBIN TIME 11.8 SECONDS (9.7-12.8); SODIUM 135 mmol/L (136-145); TOTAL PROTEIN 5.7 gm/dL (6.2-8.1)
[2021-08-10 12:26] LABS: TROPONIN-I < 0.010 ng/mL (0.00-0.033)
[2021-08-10 12:29] LABS: D-DIMER < 200.00 ng/mLDDu (200-230)
[2021-08-10] MEDS ORDERED: CRESTOR5 MG PO (13:24)
[2021-08-10] MEDS ORDERED: QUESTRAN4 GM/9 GM PO (13:24)
[2021-08-10] MEDS ORDERED: EXELON 1.5MG1.5 MG PO (13:24)
[2021-08-10] MEDS ORDERED: ATIVAN 0.50.5 MG/TAB PO (13:26)
--- NOTE | 2021-08-10 14:50 | NUR ---
PT TO ROOM FROM ER. PT ASSISTED TO BED AND GIVEN AND EDUCATED ABOUT CALL LIGHT. PT STATES UNDERSTANDING. PT STATES THAT SHE IS NOT HAVING ANY CHEST PAIN OR SOB AT THIS TIME. PT STATES THAT SHE IS HUNGRY AND WOULD LIKE TO HAVE SOMETHING TO EAT. ASSISTED PT TO CALL KITCHEN AND ORDER LUNCH. PT STATES NO OTHER NEEDS AT THIS TIME.
--- NOTE | 2021-08-10 15:40 | NUR ---
PT OFF FLOOR TO HEART CATH
--- NOTE | 2021-08-10 16:22 | NUR ---
Assessment completed prior to procedure, documented during. See merge for all medication, assessment, intervention, and vital sign times.
--- NOTE | 2021-08-10 18:10 | NUR ---
SPOKE TO PTS DAUGHTER AND INFORMED HER THAT PT WAS BACK TO FLOOR FROM HEART CATH AND WHAT HAPPENED DURING THE PROCEDURE. DAUGHTER VOICED UNDERSTANDING. DAUGHTER REQUESTS PT HEARING AIDS BE TAKEN OUT TONIGHT WHEN SHE GOES TO SLEEP. I INFORMED DAUGHTER THAT I WILL PASS IT ALONG TO [employer] [facility]. DAUGHTER STATES THAT SHE WILL BE HERE TOMORROW AFTERNOON.
[2021-08-10] MEDS ORDERED: ALBUTEROL0.83 MG/ML IH (18:44)
[2021-08-10] MEDS ORDERED: MOTRIN 200200 MG/TAB PO (19:08)
[2021-08-10] MEDS ORDERED: ASPERCREME1 EACH TP (19:12)
[2021-08-10] MEDS ORDERED: PEPTO BISM262 MG/15 PO (19:14)
[2021-08-10] MEDS ORDERED: ANTACID500 M1 (19:17)
--- NOTE | 2021-08-10 22:00 | NUR ---
Patient is resting in bed, alert but disoriented, hard of hearing. VSS. Radial band still in place, Air has been removed slowly. Pt. removed IV from left forearm. Telemetry in place, NSR. RA. Right femoral site with some dry drainage. Pt unable to stay still and flat. Assessment completed, medications provided. Continue monitoring. Bed alarm on.
--- NOTE | 2021-08-11 00:51 | NUR ---
IV was started on the left hand at 23 hrs. Patient removed it again. Pt confused. She states she is at home and wants to talk to her primary doctor. Hygiene was provided. Patient removed dressing from the right femoral site. Replaced. Lola was notified. Melatonin and seroquel was provided. Patient continues agitated and screams for help and get the doctor. Continue monitoring.
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
[2021-08-11 03:58] VITALS: BP 151/59; PULSE 58; TEMP 98
[2021-08-11 06:02] LABS: HEMATOCRIT 37.4 % (37.0-47.0); HEMOGLOBIN 13.1 g/dl (12.5-16.0); MEAN CELL VOLUME 88 fl (80.0-100.0); MEAN CORPUSCULAR HEMOGLOBIN 31 pg (27-31); MEAN CORPUSCULAR HGB CONC 35 g/dl (33.0-37.0); MEAN PLATELET VOLUME 11.4 fl (7.4-10.4); PLATELET COUNT 138 K/mm3 (130-400); RED BLOOD COUNT 4.26 M/mm3 (4.10-5.30); REDCELL DISTRIBUTION WIDTH-CV 13.5 % (11.5-14.5)
[2021-08-11 06:13] LABS: CALCIUM 8.1 mg/dL (8.4-10.2); CHOLESTEROL RISK RATIO 2.1; CREATININE, serum 0.74 mg/dL (0.57-1.11); POTASSIUM 3.9 mmol/L (3.5-4.5)
[2021-08-11 06:41] LABS: LYMPHOCYTE 6 % (20.0-51.0); NEUTROPHILS 91 % (42.0-75.2); PLATELET ESTIMATE NORMAL (NORMAL)
--- NOTE | 2021-08-11 06:44 | NUR ---
Patient was able to sleep some hours. She is still confused and trying to remove the telemetry box. She has accepted her morning meds, her blood draw and other studies. Report has been given to day shift nurse.
[2021-08-11 07:47] VITALS: BP 112/45; PULSE 55; TEMP 97.8
--- NOTE | 2021-08-11 08:15 | NUR ---
PT LAYING SUPINE IN BED ON ROOM AIR. PT DENIES ANY CHEST PAIN, SOB OR DISCOMFORT AT THIS TIME. "I FEEL FINE, WHEN CAN I GET OUT OF HERE." PT STATES NO NEEDS AT THIS TIME. CALL LIGHT IS WITHIN REACH. ECHO AT BEDSIDE.
--- NOTE | 2021-08-11 10:24 | NUR ---
up to bathroom with assitance of therapist, therapist reports that the patient states she is feeling dizzy, patient is now resting in bed with eyes closed
[2021-08-11] MEDS ORDERED: ATIVAN 0.50.5 MG/TAB PO (10:51)
[2021-08-11 10:58] VITALS: BP 117/58; PULSE 53; TEMP 98.1
--- NOTE | 2021-08-11 11:39 | NUR ---
First visit from the [facility]. prayed with patient. No other needs right now.
--- NOTE | 2021-08-11 14:54 | NUR ---
Equipment Planner spoke with DONNA Arroyo who advised patient may benefit from SNF although she is currently observation status. MYLES then collaborated with Hospitalist who advised patient to be discharge today back to her home at [facility]. MYLES contacted Shweta at [facility] who advised they can accept patient back today and can set up therapy from [facility] if outpatient PT/OT orders are written. MYLES contacted patient's daughter, Elvie who advised she will provide transportation back to [place] today. Elvie reported that patient saw her PCP, Dr. Santoyo earlier in the week so they were already in the process of setting up PT/OT. Elvie advised she will sisal picker patient's walker before transporting her back to [place]. MYLES faxed clinical updates and discharge orders to [facility]. Discharge Plan: [facility]
[2021-08-11 15:07] VITALS: BP 104/54; PULSE 59; TEMP 97.7
== END 2021-08-11 15:50 | disposition home or self-care (01) ==
LOC: COL.ER 11:47 → MEDICAL 13:30
PROVIDERS: Emergency Medicine; Physician Assistant; ADMIT Student in an Organized Health Care Education/Training Program
DX: I20.0 Unstable angina (principal); I10 Essential (primary) hypertension; J44.9 Chronic obstructive pulmonary disease, unspecified; G20 Parkinson's disease; E03.9 Hypothyroidism, unspecified; I95.9 Hypotension, unspecified; K21.9 Gastro-esophageal reflux disease without esophagitis; F41.9 Anxiety disorder, unspecified; F02.80 Dementia in other diseases classified elsewhere, unspecified severity, without behavioral disturbance, psychotic disturbance, mood disturbance, and anxiety; Z79.899 Other long term (current) drug therapy; Z79.890 Hormone replacement therapy; Z87.891 Personal history of nicotine dependence
CPT/HCPCS: 99223-AI; C1760; C1769; C1887; C1894; G0378; J1200; J1644; J2930; J3010

== ENCOUNTER → 2022-06-29 | Outpatient (CLI) | payer MEDICARE, MEDICAID ==
[~2022-06-29] MED LIST changes: +ALBUTEROL0.83 MG/ML IH; +ANTACID500 M1; +CRESTOR5 MG PO; +EXELON 1.5MG1.5 MG PO; +QUESTRAN4 GM/9 GM PO
== END ==
LOC: COL.RAD 09:52
DX: G31.9 Degenerative disease of nervous system, unspecified (principal); R20.0 Anesthesia of skin
CPT/HCPCS: A9575

== ENCOUNTER 2022-08-15 09:55 | Emergency (ER) | payer MEDICARE, MEDICAID ==
[~2022-08-15] VITALS: Ht 162.6 cm; Wt 76.4 kg
[2022-08-15 10:00] VITALS: TEMP 98.7
[2022-08-15 10:57] LABS: BASO % 0.5 % (0.0-2.0); EOS % 0.7 % (0.0-4.0); GRAN # 4.9 K/mm3 (1.4-6.5); GRAN % 79.8 % (42.2-75.2); HEMATOCRIT 36.6 % (37.0-47.0); HEMOGLOBIN 12.2 g/dl (12.5-16.0); LYMPH # 0.7 K/mm3 (1.2-3.4); LYMPH % 11.8 % (20.0-51.0); MEAN CELL VOLUME 92 fl (80.0-100.0); MEAN CORPUSCULAR HEMOGLOBIN 31 pg (27-31); MEAN CORPUSCULAR HGB CONC 33 g/dl (33.0-37.0); MEAN PLATELET VOLUME 11.7 fl (7.4-10.4); MONO # 0.4 K/mm3 (0.1-0.6); MONO % 6.9 % (1.7-9.3); PLATELET COUNT 145 K/mm3 (130-400); RED BLOOD COUNT 3.96 M/mm3 (4.10-5.30); REDCELL DISTRIBUTION WIDTH-CV 13.9 % (11.5-14.5)
[2022-08-15 11:14] LABS: ALBUMIN 3.3 gm/dL (3.4-4.8); CALCIUM 8.4 mg/dL (8.4-10.2); CREATININE, serum 0.78 mg/dL (0.57-1.11); POTASSIUM 3.6 mmol/L (3.5-4.5); TOTAL PROTEIN 5.3 gm/dL (6.2-8.1)
[2022-08-15] MEDS ORDERED: PREDNISONE20 MG PO (11:40)
[2022-08-15 11:43] LABS: BILIRUBIN,TOTAL 0.5 mg/dL (0.2-1.2)
[2022-08-15 12:04] VITALS: BP 128/71; PULSE 58
== END 2022-08-15 12:04 | disposition home or self-care (01) ==
LOC: COL.ER 09:55
PROVIDERS: Nurse Practitioner
DX: J44.1 Chronic obstructive pulmonary disease with (acute) exacerbation (principal); Z79.51 Long term (current) use of inhaled steroids; Z87.891 Personal history of nicotine dependence; Z20.822 Contact with and (suspected) exposure to COVID-19

== ENCOUNTER 2023-01-19 16:53 | Observation (INO) | payer MEDICARE, MEDICAID ==
[~2023-01-19] VITALS: Ht 162.6 cm; Wt 76.5 kg
[2023-01-19 17:36] LABS: BASO % 0.2 % (0.0-2.0); GRAN # 4.9 K/mm3 (1.4-6.5); GRAN % 79.5 % (42.2-75.2); HEMATOCRIT 42.4 % (37.0-47.0); HEMOGLOBIN 13.8 g/dl (12.5-16.0); LYMPH # 0.6 K/mm3 (1.2-3.4); LYMPH % 9.1 % (20.0-51.0); MEAN CELL VOLUME 93 fl (80.0-100.0); MEAN CORPUSCULAR HEMOGLOBIN 30 pg (27-31); MEAN CORPUSCULAR HGB CONC 33 g/dl (33.0-37.0); MEAN PLATELET VOLUME 11.3 fl (7.4-10.4); MONO # 0.7 K/mm3 (0.1-0.6); MONO % 10.9 % (1.7-9.3); PLATELET COUNT 154 K/mm3 (130-400); RED BLOOD COUNT 4.55 M/mm3 (4.10-5.30)
[2023-01-19 17:51] LABS: ALBUMIN 3.7 gm/dL (3.4-4.8); BILIRUBIN,TOTAL 0.9 mg/dL (0.2-1.2); CALCIUM 8.7 mg/dL (8.4-10.2); CREATININE, serum 0.81 mg/dL (0.57-1.11); POTASSIUM 3.8 mmol/L (3.5-4.5); TOTAL PROTEIN 6.2 gm/dL (6.2-8.1)
[2023-01-19 18:57] LABS: COLLECTION METHOD CLEAN CATCH
[2023-01-19 19:15] LABS: URINE APPEARANCE Hazy (CLEAR/HAZY); URINE BLOOD Negative (NEGATIVE); URINE COLOR Yellow (YELLOW); URINE GLUCOSE Negative (NEGATIVE); URINE KETONE TRACE (NEGATIVE); URINE NITRATE Negative (NEGATIVE); URINE PROTEIN(semi-quant) 1+ (NEGATIVE)
[2023-01-19 19:16] LABS: MUCOUS Present (NOT PRESENT); URINE BACTERIA Occasional /hpf (NONE SEEN)
[2023-01-19 19:28] LABS: C-REACTIVE PROTEIN 4.8 mg/dL (0.00-0.50)
[2023-01-19] MEDS ORDERED: PROVENTIL0.09 MG/A1 IH (19:29)
[2023-01-19] MEDS ORDERED: MOTRIN 200200 MG/TAB PO (19:30)
[2023-01-19] MEDS ORDERED: ATIVAN 0.50.5 MG/TAB PO (19:30)
[2023-01-19] MEDS ORDERED: CLARITIN 1010 MG/TAB PO (19:30)
[2023-01-19] MEDS ORDERED: ANORO IH (19:30)
[2023-01-19] MEDS ORDERED: ASPIRIN 81M81 MG/TA2 PO (19:30)
[2023-01-19] MEDS ORDERED: PEPCID 20MG TAB20 MG PO (19:31)
[2023-01-19] MEDS ORDERED: EXELON3 MG PO (19:31)
[2023-01-19] MEDS ORDERED: LEXAPRO20 MG PO (19:31)
[2023-01-19] MEDS ORDERED: IMDUR 30MG30 MG/TAB PO (19:31)
[2023-01-19] MEDS ORDERED: CRESTOR5 MG PO (19:31)
[2023-01-19] MEDS ORDERED: NAMENDA XR 28MG PO (19:31)
[2023-01-19] MEDS ORDERED: NEURONTIN300 MG/CAP PO (19:31)
[2023-01-19] MEDS ORDERED: SYNTHROID0.05 MG/TA PO (19:33)
[2023-01-19] MEDS ORDERED: SINGULAIR 110 MG/TAB PO (19:33)
[2023-01-19] MEDS ORDERED: QUESTRAN4 GM/9 GM PO (19:33)
[2023-01-19] MEDS ORDERED: NYSTATIN POWDER15 GM TOP (19:33)
[2023-01-19] MEDS ORDERED: FLONASE NASAL S16 GM NS (19:34)
[2023-01-19] MEDS ORDERED: VOLTAREN GEL 1%1 TU TP (19:34)
[2023-01-19 21:03] VITALS: BP 115/63; PULSE 57; TEMP 99.5
[2023-01-20] VITALS (12 sets, daily range): BP systolic 97–164; BP diastolic 45–83; PULSE 58–66; TEMP 97.9–99.9
[2023-01-20] MEDS ORDERED: ASPERCREME85 GM TP (03:33)
[2023-01-20] MEDS ORDERED: HALLS9.1 MG PO (03:37)
[2023-01-20] MEDS ORDERED: EPSOM SALT TP (03:40)
[2023-01-20] MEDS ORDERED: GAS RELIEF125 MG PO (03:42)
[2023-01-20] MEDS ORDERED: LEADER EYE ITCH5 ML OU (03:51)
[2023-01-20] MEDS ORDERED: ASPERCREME1 EACH TD (04:02)
[2023-01-20] MEDS ORDERED: ANTI-DIARRHEAL2 MG PO (04:04)
[2023-01-20] MEDS ORDERED: LUTEIN20 M1 PO (04:06)
[2023-01-20] MEDS ORDERED: MUCINEX 60600 MG/TA1 PO (04:17)
[2023-01-20] MEDS ORDERED: PEPTO BISM262 MG/15 PO (04:18)
[2023-01-20] MEDS ORDERED: REQUIP 1MG T1 MG/TAB PO (04:20)
[2023-01-20] MEDS ORDERED: REQUIP4 MG PO (04:22)
[2023-01-20] MEDS ORDERED: SYSTANE 0.4%-0.1 SOL OU (04:26)
[2023-01-20] MEDS ORDERED: TUMS500 MG PO (04:27)
[2023-01-20] MEDS ORDERED: VICKS VAPORUB 41 OIN TOP (04:30)
[2023-01-20] MEDS ORDERED: SALINE 45 ML45 ML NAS (04:58)
[2023-01-20] MEDS ORDERED: MULTI-VITAMIN W1 TA1 PO (04:59)
--- NOTE | 2023-01-20 05:00 | NUR ---
PT ARRIVED TO THE MEDICAL FLOOR A LITTLE AFTER 2000HRS TO ROOM 309. PT A&O X 4; VSS FOR PT; O2 RA. PT COMPLAINED OF BLE PAIN. HOSPITALIST CALLED. LIDOCAINE PATCHES AND MUSCLE RUB ORDERED AND GIVEN. PT FELT THAT HELPED WITH HER PAIN. PT DENIED CHEST PAIN, PALPITATIONS, SOB, N,V,D OR DIZZINESS. ADMISSIONS ASSESSMENT AND MED REC COMPLETE I COULD (I HAD NO LUCK GETTING IN TOUCH WITH STAFF FROM [facility]). PT ORIENTED TO ROOM AND HOSPITAL POLICY. ALL QUESTIONS AND CONCERNS ADDRESSED. FALL PRECAUTIONS IN PLACE. BED ALARM ON. CALL LIGHT WITHIN REACH.
[2023-01-20 07:58] LABS: BASO % 0.3 % (0.0-2.0); GRAN # 2.4 K/mm3 (1.4-6.5); GRAN % 65.6 % (42.2-75.2); HEMATOCRIT 37.6 % (37.0-47.0); HEMOGLOBIN 12.7 g/dl (12.5-16.0); LYMPH # 0.7 K/mm3 (1.2-3.4); LYMPH % 17.7 % (20.0-51.0); MEAN CELL VOLUME 89 fl (80.0-100.0); MEAN CORPUSCULAR HEMOGLOBIN 30 pg (27-31); MEAN CORPUSCULAR HGB CONC 34 g/dl (33.0-37.0); MEAN PLATELET VOLUME 11.3 fl (7.4-10.4); MONO # 0.6 K/mm3 (0.1-0.6); MONO % 16.1 % (1.7-9.3); PLATELET COUNT 109 K/mm3 (130-400); RED BLOOD COUNT 4.21 M/mm3 (4.10-5.30); REDCELL DISTRIBUTION WIDTH-CV 14.7 % (11.5-14.5)
[2023-01-20 08:15] LABS: ALBUMIN 3.1 gm/dL (3.4-4.8); BILIRUBIN,TOTAL 1.1 mg/dL (0.2-1.2); CALCIUM 8.2 mg/dL (8.4-10.2); CREATININE, serum 0.72 mg/dL (0.57-1.11); POTASSIUM 3.5 mmol/L (3.5-4.5); TOTAL PROTEIN 5.2 gm/dL (6.2-8.1)
--- NOTE | 2023-01-20 09:10 | NUR ---
PRE PATIENTS DAUGHTER SARIKA, HER FAMILY DOES NOT WANT PATIENT TO RECIEVE REMDESIVIR AND WOULD LIKE THE MD TO CALL HER FOR QUESTIONS. PER PATIENTS DAUGHTER [employer] HAVE POA OVER PATIENT, THIS RN IS UNABLE TO GET AHOLD OF [facility] NURSHING HOME TO CONFIRM. WILL INFORM MD.
--- NOTE | 2023-01-20 09:26 | NUR ---
RN ATTEMPTED TO CALL [facility]. UNABLE TO REACH
--- NOTE | 2023-01-20 09:30 | NUR ---
MD NOTIFIED THAT PATIENTS DAUGHTER DOES NOT WANT THE PATIENT TO RECIEVE REMDESIVIR AND WOULD LIKE AN UPDATE ON PATIENT STATUS. INFORMED THAT PATIENT IS DNR ON SB PAPER WORK AND IS CURRENTLY FULL CODE.
--- NOTE | 2023-01-20 09:40 | NUR ---
PATIENT WITH COMPLAINTS OF NAUSEA. GAVE RN TORB FOR ZOFRAN 4MG IV Q6H PRN
--- NOTE | 2023-01-20 11:26 | NUR ---
SW contacted DPOA (Elvie Granados [phone]) she previously contacted and inquired with nurse and provide about questions regarding medication. She updated and confirmed that demographics on patient was updated and correct. Informed SW that patient resides in assisted living ([facility]) at this time she is tracking utlizitation of walker, CPAC machine and neubralizer. Patient also has dentures and hearing aids and is working on getting those to hospital for patient to have. DPSHILPI is on file with hospital at this time. Patients daughter/DPOA was provided SW contact team information if she has further questions or concerns about patient care.
--- NOTE | 2023-01-20 16:43 | NUR ---
PATIENT AWAKE AND ALERT, SITTING UP IN BED. PATIENT DENIES ANY NEEDS OR COMPLAINTS AT THIS TIME. CALL LIGHT WITHIN REACH. PATIENT ASSISTED PATIENT TO CALL HER DAUGHTER SARIKA. FALL PRECAUTIONS IN PLACE.
[2023-01-21] VITALS (7 sets, daily range): BP systolic 126–152; BP diastolic 61–67; PULSE 54–60; TEMP 98.6–99.2
--- NOTE | 2023-01-21 08:27 | NUR ---
PATIENT NOW HAS HER DENTURES. RN CHANGED PATIENT BACK TO STANDARD AHA DIET
[2023-01-21 08:35] LABS: CALCIUM 7.7 mg/dL (8.4-10.2); CREATININE, serum 0.64 mg/dL (0.57-1.11); POTASSIUM 3.6 mmol/L (3.5-4.5)
[2023-01-21] MEDS ORDERED: ALBUTEROL0.83 MG/ML IH (08:43)
[2023-01-21] MEDS ORDERED: ANECREAM15 TOP (08:47)
[2023-01-21] MEDS ORDERED: ANUSOL HC CREAM30 GM TP (08:55)
[2023-01-21] MEDS ORDERED: ZADITOR 5 ML5 ML OP (08:56)
[2023-01-21] MEDS ORDERED: MUCINEX DM 30 M1 TE1 PO (08:59)
[2023-01-21] MEDS ORDERED: NEURONTIN300 MG/CAP PO (09:02)
--- NOTE | 2023-01-21 09:48 | NUR ---
PATIENT CLEANED UP IN BED BY RN. KOTHARI CARE PROVIDED. PATIENT REPOSITIONED. PATIENT DENEIS ANY NEEDS OR COMPLAINTS AT THIS TIME. CALL LIGHT WITHIN REACH. FALL PRECAUTIONS IN PLACE.
--- NOTE | 2023-01-21 10:15 | NUR ---
PATIENT TEARFUL AND IMPATIENT WITH STAFF. PATIENT CRYING "I JUST DONT THINK MY DAUGHTER KNOWS WHAT YOU GUYS ARE DOING TO ME." RN REORIENTED PATIENT, AND PROVIDED SUPPORT. PATIENT ASSISTED BACK TO BED REQUIRING A 1 ASSIST WITH THE GAIT BELT AND A ROLLING WALKER. FALL PRCAUTIONS IN PLACE. BED ALARM ON AND CALL LIGHT/DRINK WITHIN REACH.
--- NOTE | 2023-01-21 10:27 | NUR ---
KOTHARI CATHETER DISCONTINUED. PATIENT TOLERATED WELL.
--- NOTE | 2023-01-21 12:21 | NUR ---
ATTEMPTED TO CALL REPORT TO [facility] RN MASSIMO, SHE REQUESTED THIS RN CALL BACK IN ONE HOUR.
--- NOTE | 2023-01-21 12:34 | NUR ---
ornamental iron worker helper was notified by Dr. Rojas patient was medically cleared to discharge today. Dr. Rojas recommended PT/OT when returning home. ornamental iron worker helper contacted [facility] regarding patient discharging today. ornamental iron worker helper was notified [facility] did not have any transportation today, so patient would either need to arrive via EMS or family. ornamental iron worker helper was notified patient would be able to receive PT/OT while at assisted living. ornamental iron worker helper contacted the family member, Elvie, and expressed patient would be able to discharge today. Elvie asked if patient would be able to do PT/OT while at assisted living. ornamental iron worker helper notified Elvie that patient would be able to receive PT/OT while in assisted living and she would send the referral for home health services. Elvie expressed she would be able to rock picker patient at 2-230 pm to transfer to assisted living. ornamental iron worker helper expressed she would leave the Medicare[employer]gov home health agencies with nurse for her to review at discharge. Elvie expressed patient used [facility] in the past and she would be open to utilizing their services again. ornamental iron worker helper updated nursing on rock picker timeframe. ornamental iron worker helper contacted Dr. Rojas for home health orders for patient. ornamental iron worker helper faxed referral to [facility]. ornamental iron worker helper was contacted by [facility] expressing they would follow up with the hospice social worker if they would be able to provide home health for this patient. Discharge Plan: [facility] with Home Health
--- NOTE | 2023-01-21 14:00 | NUR ---
PATIENT IC REMOEVED, BRIEF IN PLACE, DRESSED AND SITTING UP IN CHAIR, AWAIITNG HER DAUGHTER TO PICK HER UP. FALL PRECAUTIOSN IN PLACE.
--- NOTE | 2023-01-21 15:00 | NUR ---
REPORT GIVEN TO MASSIMO AT [facility]. CALL BACK NUMBER GIVEN
--- NOTE | 2023-01-21 15:30 | NUR ---
PATIENTS DAUGHTER/DPO SARIKA GIVEN DISCHARGE INSTRUCTIONS AND EDUCATION. PATIENT DID NOT WANT TO REVIEW HER DISCHARGE INSTRUCTIONS AND EDUCATION. ALL QUESTIONS ANSWERED. PATIENT TAKEN TO PATIENT ENTRACE VIA WHEELCHAIR BY PCT WHERE SHE LEFT IN STABLE CONDITION WITH HER DAUGHTER.
== END 2023-01-21 15:30 | disposition home or self-care (01) ==
LOC: COL.ER 16:53 → MEDICAL 18:45
PROVIDERS: Internal Medicine; Physician Assistant; ADMIT Internal Medicine
DX: U07.1 COVID-19 (principal); R53.1 Weakness; Y93.9 Activity, unspecified; J44.9 Chronic obstructive pulmonary disease, unspecified; I10 Essential (primary) hypertension; G20.A1 Parkinson's disease without dyskinesia, without mention of fluctuations; F02.80 Dementia in other diseases classified elsewhere, unspecified severity, without behavioral disturbance, psychotic disturbance, mood disturbance, and anxiety; W19.XXXA Unspecified fall, initial encounter; Z79.899 Other long term (current) drug therapy
CPT/HCPCS: G0378; J1650; J1885; J2405; J7030; J7120

== ENCOUNTER 2023-04-23 19:37 | Emergency (ER) | payer MEDICARE, MEDICAID ==
[~2023-04-23] VITALS: Ht 162.6 cm; Wt 77.3 kg
[~2023-04-23 19:37] MED LIST changes: +ANECREAM15 TOP; +ANUSOL HC CREAM30 GM TP; +ASPERCREME1 EACH TD; +ASPERCREME85 GM TP; +CLARITIN 1010 MG/TAB PO; +EPSOM SALT TP; +EXELON3 MG PO; +HALLS9.1 MG PO; +LEADER EYE ITCH5 ML OU; +MUCINEX DM 30 M1 TE1 PO; +MULTI-VITAMIN W1 TA1 PO; +NYSTATIN POWDER15 GM TOP; +PROVENTIL0.09 MG/A1 IH; +REQUIP4 MG PO; +SALINE 45 ML45 ML NAS; +SYSTANE 0.4%-0.1 SOL OU; +TUMS500 MG PO; +VICKS VAPORUB 41 OIN TOP; +ZADITOR 5 ML5 ML OP
[2023-04-23] MEDS ORDERED: fentaNYL 50 MCG/ML 2 ML VIAL IM ONE ×2 (20:00→21:45)
[2023-04-23 22:27] VITALS: BP 195/81; PULSE 117
== END 2023-04-23 22:27 | disposition home or self-care (01) ==
LOC: COL.ER 19:37
DX: M79.605 Pain in left leg (principal); Z87.891 Personal history of nicotine dependence; Z88.6 Allergy status to analgesic agent
CPT/HCPCS: J3010

== ENCOUNTER 2023-05-28 21:35 | Emergency (ER) | payer MEDICARE, MEDICAID ==
[~2023-05-28] VITALS: Ht 162.6 cm; Wt 68.2 kg
[2023-05-28 21:39] VITALS: TEMP 98.3
[2023-05-28] MEDS ORDERED: LORazepam 0.5 MG TAB PO ONE (22:45)
[2023-05-28 23:27] LABS: BASO % 0.5 % (0.0-2.0); EOS # 0.1 K/mm3 (0.0-0.7); EOS % 1.3 % (0.0-4.0); GRAN # 4.1 K/mm3 (1.4-6.5); GRAN % 75.1 % (42.2-75.2); HEMOGLOBIN 11.9 g/dl (12.5-16.0); LYMPH # 0.8 K/mm3 (1.2-3.4); LYMPH % 13.6 % (20.0-51.0); MEAN CELL VOLUME 90 fl (80.0-100.0); MEAN CORPUSCULAR HEMOGLOBIN 31 pg (27-31); MEAN CORPUSCULAR HGB CONC 34 g/dl (33.0-37.0); MONO # 0.5 K/mm3 (0.1-0.6); MONO % 9.3 % (1.7-9.3); PLATELET COUNT 135 K/mm3 (130-400); REDCELL DISTRIBUTION WIDTH-CV 14.2 % (11.5-14.5)
[2023-05-28 23:39] LABS: HEMATOCRIT 35.1 % (37.0-47.0)
[2023-05-28 23:43] LABS: ALBUMIN 3.5 gm/dL (3.4-4.8); BILIRUBIN,TOTAL 0.4 mg/dL (0.2-1.2); C-REACTIVE PROTEIN 0.15 mg/dL (0.00-0.50); CALCIUM 8.5 mg/dL (8.4-10.2); CREATININE, serum 0.83 mg/dL (0.57-1.11); POTASSIUM 4.1 mmol/L (3.5-4.5); TOTAL PROTEIN 5.9 gm/dL (6.2-8.1)
[2023-05-29 01:24] VITALS: BP 168/87; PULSE 64
== END 2023-05-29 01:24 | disposition home or self-care (01) ==
LOC: COL.ER 21:35
PROVIDERS: Nurse Practitioner
DX: M79.604 Pain in right leg (principal); M79.605 Pain in left leg; Z87.39 Personal history of other diseases of the musculoskeletal system and connective tissue; Z87.891 Personal history of nicotine dependence

== ENCOUNTER 2023-06-25 20:09 | Emergency (ER) | payer MEDICARE, MEDICAID ==
[~2023-06-25] VITALS: Ht 162.6 cm; Wt 72.7 kg
[2023-06-25 20:10] VITALS: TEMP 98.4
[2023-06-25] MEDS ORDERED: Triamcinolone 40 MG/ML 1 ML VIAL IJP ONE (20:30)
[2023-06-25 22:02] VITALS: BP 178/94; PULSE 70
== END 2023-06-25 22:02 | disposition home or self-care (01) ==
LOC: COL.ER 20:09
DX: M70.62 Trochanteric bursitis, left hip (principal); M17.0 Bilateral primary osteoarthritis of knee
CPT/HCPCS: J3301

== ENCOUNTER → 2023-07-04 | Outpatient (CLI) | payer MEDICARE, MEDICAID ==
[2023-07-04 11:23] LABS: BASO % 0.1 % (0.0-2.0); EOS # 0.1 K/mm3 (0.0-0.7); GRAN # 5.7 K/mm3 (1.4-6.5); GRAN % 80.8 % (42.2-75.2); LYMPH # 0.7 K/mm3 (1.2-3.4); LYMPH % 9.2 % (20.0-51.0); MEAN CELL VOLUME 93 fl (80.0-100.0); MEAN CORPUSCULAR HGB CONC 33 g/dl (33.0-37.0); MEAN PLATELET VOLUME 11.2 fl (7.4-10.4); MONO # 0.6 K/mm3 (0.1-0.6); MONO % 8.2 % (1.7-9.3); PLATELET COUNT 211 K/mm3 (130-400); REDCELL DISTRIBUTION WIDTH-CV 15.9 % (11.5-14.5)
[2023-07-04 11:41] LABS: ALBUMIN 3.2 g/dL (3.4-4.8); BILIRUBIN,TOTAL 1.3 mg/dL (0.2-1.2); CALCIUM 8.1 mg/dL (8.4-10.2); CREATININE, serum 0.82 mg/dL (0.57-1.11); POTASSIUM 3.1 mEq/L (3.5-4.5)
[2023-07-04 11:48] LABS: HEMATOCRIT 28.7 % (37.0-47.0); HEMOGLOBIN 9.6 g/dl (12.5-16.0); MEAN CORPUSCULAR HEMOGLOBIN 31 pg (27-31)
== END ==
LOC: COL.RAD 10:24
PROVIDERS: Student in an Organized Health Care Education/Training Program
DX: M25.552 Pain in left hip (principal)